=== PATIENT | female | born 1960 | race Caucasian/White ===

== ENCOUNTER 2016-11-13 05:24 | Inpatient (IN) | payer OTHER ==
--- NOTE | 2016-11-10 14:27 | PREOPHP ---
DATE OF ADMISSION: 11/13/2016 The patient to have surgery with Dr. Godwin Layton 11/13/2016. REASON FOR CONSULTATION: Consultation requested by Dr. Godwin Layton for medical evaluation and maude arance of a 56-year-old woman about to undergo surgery on her lumbar spine. Thank you, Dr. Layton, for allowing us to participate in the care of this patient. HISTORY OF PRESENT ILLNESS: Bita Choudhury is a 56-year-old woman with problems with her low back, i s currently being admitted for corrective surgery of the above, in terms of her past. SURGICAL HISTORY: She has had 1 , tonsil and adenoid surgery, tubal ligation, breast augme ntation and tummy tuck in the past, as well as an open ovarian cystectomy. Other than that, she has had no other surgical procedures. Has not had any medical admissions and has really not broken any significant big bones. MEDICATIONS: The patient is currently taking the following medications: 1. Meloxicam 15 mg a day, which she has stopped taking for now. 2. Atorvastatin 40 mg a day. 3. Omeprazole 20 mg a day. 4. Atenolol 50 mg b.i.d. 5. Lisinopril 40 mg a day. 6. Amlodipine 5 mg a day. 7. Lasix 20 mg a day. 8. Ibuprofen 800 mg daily, which she stopped. 9. Benzonatate 100 mg 2 a day. 7. [place] 5/325 as needed. 8. Vitamin E. 9. Vitamin C. 10. Vitamin D daily. ALLERGIES: SHE IS ALLERGIC OR SENSITIVE TO: 1. CODEINE. 2. TRAMADOL. GENERAL HEALTH: Has been good. SOCIAL HISTORY: The patient is , has 1 daughter and 3 grandchildren, all in good health. Bj aleman smokes approximately 1+ packs of cigarettes a day and has been doing so for over 40 years. No alc ohol. Does drink coffee. Has no difficulty sleeping at night. FAMILY HISTORY: Father at age 72 of lung disease. He was a smoker. Mother, 77, has dementia. Four siblings are in good health, albeit one had heart issues. There is a family history, however , of diabetes, heart, cancer, hypertension, stroke, possibly thyroid. REVIEW OF SYSTEMS HEENT: Periodic headaches. CARDIORESPIRATORY: Occasional shortness of breath on exertion. GASTROINTESTINAL: Has hyperacidity symptoms, but no melena or hematemesis. GENITOURINARY: No urgency, frequency. 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 MUSCULOSKELETAL: Positive for back problems. NEUROPSYCHIATRIC: Unremarkable. GENERAL HEALTH: As above. PHYSICAL EXAMINATION: VITAL SIGNS: The patient's blood pressure was 140/72, pulse was 92 and regular, respirations were 1 7, temperature 98.3, height 5 foot 3 inches, weight 183 pounds. GENERAL: The patient was noted to be a well-developed, well-nourished female, alert and cooperative , in no apparent acute distress, oriented to time, place, and person. HEAD, EARS, EYES, NOSE AND THROAT: Head was atraumatic. Eyes: Pupils were equal, reactive to ligh t and accommodation. Fundi were benign. Tympanic membranes were unremarkable. Nose was negative. Mouth was unremarkable. Fair oral hygiene was present. NECK: Supple without any rigidity. Trachea was midline. Thyroid was within normal limits. Neck v eins were flat. Carotid pulses were equal. No bruit were heard. BACK: Unremarkable. CHEST: Symmetrical. Bilateral breast augmentation implants were noted. No axillary masses were pa lpable. LUNGS: Clear to percussion and auscultation. HEART: PMI is fifth intercostal space at the midclavicular line. Regular sinus rhythm was noted. No significant murmurs, rubs, or gallops being elicited. ABDOMEN: Soft, good bowel sounds were noted. No significant organomegaly, masses, or tenderness. Scar from prior surgery being noted. GENITALIA: Normal female external genitalia. PELVIC/RECTAL: Per tractor sweeper driver. EXTREMITIES: Did not reveal any clubbing, edema or cyanosis. Peripheral pulses were physiologic. SKIN: Moist and warm without any eruptions. No gross lymphadenopathy was noted. NEUROLOGIC: Grossly intact. IMPRESSION 1. Lumbar disk disease as well as the degenerative joint disease. 2. Hypertension. 3. Hyperlipidemia. 4. Menopausal syndrome. 5. Smoker. 6. Stable health. DISCUSSION: Review of laboratory and other data revealed the following: The patient's chemistry pa adina revealed a random glucose of 126, total cholesterol of 201, normal electrolytes, BUN, creatinine , and liver function tests. Iron: Patient's CBC was normal, sed rate elevated at 39, normal UA, PT , and PTT. Patient's EKG was normal. Her chest x-ray was normal as well. Her O2 saturation on room air was 93%. DISCUSSION: Dr. Layton, I see no contraindication in this patient undergoing current proposed anup noris under desired form of anesthesia and I feel she is a suitable candidate at this particular poin t in time. I would be more than happy to follow her along with you during her stay at [facility]. Thank you again, Dr. Layton, for allowing us to participate in the care of this patient. Dictated By: KATHERIN MELÉNDEZ MD SS/NTS Conf#: [id number] DID#: [id number]
[2016-11-12 10:26] VITALS: Ht 160 cm; Wt 84.0 kg
[2016-11-13] VITALS (29 sets, daily range): BP systolic 104–146; BP diastolic 51–72; PULSE 65–94; RESP 16–23
[~2016-11-13] VITALS: Ht 160 cm; Wt 84.0 kg
[~2016-11-13 05:24] MED LIST: CEFAZOLIN 2 GM/50 ML (PMX) 50 ML IVPB ONE
[2016-11-13] MEDS ORDERED: POLYMYXIN/BACITRACIN 1L IRRIG ONE (06:35)
[2016-11-13] MEDS ORDERED: GELATIN SIZE 100 SPONGE ONE (06:35)
[2016-11-13] MEDS ORDERED: BUPIVACAINE 0.25% (MPF) 10 ML 10 ML VIAL ONE (06:35)
[2016-11-13] MEDS ORDERED: THROMBIN 5000 UNIT VIAL ONE (06:35)
[2016-11-13] MEDS ORDERED: MELO-216 PO (06:42)
[2016-11-13] MEDS ORDERED: BENZ150C4 PO (06:42)
[2016-11-13] MEDS ORDERED: LISI40TA9 PO (06:42)
[2016-11-13] MEDS ORDERED: AMLO5TAB4 PO (06:42)
[2016-11-13] MEDS ORDERED: IBUP800T25 PO (06:42)
[2016-11-13] MEDS ORDERED: FURO20TA3 PO (06:42)
[2016-11-13] MEDS ORDERED: ATOR40TA68 PO (06:42)
[2016-11-13] MEDS ORDERED: OMEP20CA16 PO (06:42)
[2016-11-13] MEDS ORDERED: ATEN50TA PO (06:42)
[2016-11-13] MEDS ORDERED: VIT E PO (06:46)
[2016-11-13] MEDS ORDERED: [UNRECOGNIZED DRUG - CODE] PO (06:46)
[2016-11-13] MEDS ORDERED: D3 PO (06:47)
[2016-11-13] MEDS ORDERED: ONDANSETRON 4 MG INJ ONE (06:53)
[2016-11-13] MEDS ORDERED: ROCURONIUM 50 MG INJ ONE (06:53)
[2016-11-13] MEDS ORDERED: PROPOFOL 20 ML ONE (06:53)
[2016-11-13] MEDS ORDERED: METOCLOPRAMIDE 10 MG INJ ONE (06:53)
[2016-11-13] MEDS ORDERED: MIDAZOLAM 1 MG/ML 2 ML INJ ONE (06:53)
[2016-11-13] MEDS ORDERED: HYDROmorphONE 2 MG/ML SYG ONE (07:01)
[2016-11-13] MEDS ORDERED: EPHEDrine SULFATE 50 MG/5 ML SYG ONE ×3 (07:40→09:44)
[2016-11-13] MEDS: LACTATED RINGER'S 1,000 ML IV* SCH ×2 (08:00→10:19)
[2016-11-13] MEDS ORDERED: MEPERIDINE 25 MG INJ IV PRN (09:00)
[2016-11-13] MEDS ORDERED: DIPHENHYDRAMINE 50 MG INJ IV PRN (09:00)
[2016-11-13] MEDS ORDERED: ALBUTEROL 0.5% (NEB) 2.5 MG/0.5 ML AMP INH ONE (09:00)
[2016-11-13] MEDS ORDERED: ONDANSETRON 4 MG INJ IV PRN ×2 (09:00→10:30)
[2016-11-13] MEDS ORDERED: hydrALAzine 20 MG INJ IV PRN (09:00)
[2016-11-13] MEDS ORDERED: IPRATROPIUM (NEB) 0.5 MG/2.5 ML AMP HHN ONE (09:00)
[2016-11-13] MEDS ORDERED: HYDROmorphONE (0.2 MG/ML) 10ML SYG IV PRN ×3 (09:00)
[2016-11-13] MEDS ORDERED: LABETALOL HCL 20MG INJ IV PRN (09:00)
[2016-11-13] MEDS ORDERED: METOCLOPRAMIDE 10 MG INJ IV PRN (09:00)
--- NOTE | 2016-11-13 09:14 | RADRPT ---
PROCEDURE: XR Lumbar Spine one view. CLINICAL INDICATION: Low back pain. Intraoperative. TECHNIQUE: Prone portable cross-table lateral. COMPARISON: Prior study done earlier the same day. FINDINGS: For the purposes of this report, the last apparent true disc level is considered to be L5-S1. Based on this, the posterior surgical instruments are present at the L3 spinous process level, L4 spinous process level, and L5 spinous process level. IMPRESSION: 1. Intraoperative imaging as described above. Call report: A call report of the findings was made to Dr. Layton on 11/13/2016 at 0752 hours. RPTAT: QQ .Tenzin Paige MD, MD Date Time Electronically viewed and signed by .Tenzin Paige MD, MD on 11/13/2016 09:14 .R/
--- NOTE | 2016-11-13 09:14 | RADRPT ---
PROCEDURE: XR Lumbar Spine one view. CLINICAL INDICATION: Low back pain. Intraoperative. TECHNIQUE: Prone portable cross-table lateral. COMPARISON: No prior studies are available for comparison. FINDINGS: For the purposes of this report, the last apparent true disc level is considered to be L5-S1. Based on this, the posterior needle markers are present at L3-4 and L5-S1. IMPRESSION: 1. Intraoperative imaging as described above. RPTAT: QQ .Tenzin Paige MD, MD Date Time Electronically viewed and signed by .Tenzin Paige MD, MD on 11/13/2016 09:13 .R/
--- NOTE | 2016-11-13 10:29 | OPPN ---
Date/Time of Note Date/Time of Note DATE: 11/13/16 TIME: 10:20 Operative/Procedure Note Pre-Operative Diagnosis Lumbar spinal stenosis at L3-L4 and L5. Herniated disc L4-5 on the left (foraminal) Foraminal stenosis L4-5 on the left.. Post-Operative Diagnosis Same Procedure 1. Central decompressive laminectomy at L3 2. Central decompressive laminectomy at L4. 3. Central decompressive laminectomy at L5. 4. Microdiscectomy L4-5 on the left. 5. Baxano transforaminal root decompression of the left L4 root. 6. Cosmetic wound closure.8cm 7. Lateral localizing lumbar radiographs (2). 8. Intraoperative nerve monitoring (3-1/2 hours). Surgeon: OLY CHAVIRA MD Anesthesiologist: MARSHA LEA MD Findings Operative findings revealed lumbar spinal stenosis at L3-L4 and L5. There was a small to moderate left foraminal herniation L4-5. There was moderately severe foraminal stenosis at L4 on the left. Intraoperative nerve monitoring revealed decrease in the left L4 potential of 50% the right L4 potential 30% left L5 potential of 60% the right L5 potential 40% and the left S1 potential 20 % and the right S1 potential 20% these all returned to normal at the completion of the procedure. Blood Usage/Administration None Implants/Grafts: Not applicable Estimated blood loss: 50 - 100 ml's Drains 2 medium Hemovac drains employed. Complications: None Anesthesia type: general OLY CHAVIRA MD Nov 13, 2016 10:29
[2016-11-13] MEDS ORDERED: DIAZEPAM 5 MG/ML SYG IM PRN (10:30)
[2016-11-13] MEDS ORDERED: ZOLPIDEM 5 MG TAB PO PRN (10:30)
[2016-11-13] MEDS ORDERED: HYDROCODONE/APAP (5/325) TAB PO PRN (10:30)
[2016-11-13] MEDS ORDERED: NACL 0.9% 3 ML SYG IV SCH (10:30)
[2016-11-13] MEDS ORDERED: DIAZEPAM 5 MG TAB PO PRN (10:30)
[2016-11-13] MEDS ORDERED: TRIMETHOBENZAMIDE 100 MG/ML VIAL IM PRN (10:30)
[2016-11-13] MEDS ORDERED: PROCHLORPERAZINE 10 MG TAB PO PRN (10:30)
[2016-11-13] MEDS ORDERED: CEPASTAT LOZENGE MT PRN (10:30)
[2016-11-13] MEDS ORDERED: ACETAMINOPHEN 325 MG TAB PO PRN (10:30)
[2016-11-13] MEDS ORDERED: HYDROmorphONE 0.2 MG/ML PCA IV SCH (10:30)
[2016-11-13] MEDS ORDERED: DIPHENHYDRAMINE 50 MG CAP PO PRN (10:30)
[2016-11-13] MEDS ORDERED: NALOXONE (0.4 MG/ML) INJ IV PRN (10:30)
[2016-11-13] MEDS ORDERED: BETHANECHOL 25 MG TAB PO PRN (10:30)
[2016-11-13] MEDS ORDERED: AL HYDROX/MG HYDROX/SIMETH 30 ML CUP PO PRN (10:30)
[2016-11-13] MEDS: CEFAZOLIN 1 GM/50 ML (PMX) 50 ML IVPB SCH ×2 (13:00→18:29)
[2016-11-13] MEDS: DEXTROSE 5%-0.45% NACL 1,000 ML IV SCH ×3 (13:30→23:45)
[2016-11-13] MEDS ORDERED: NALOXONE (0.4 MG/ML) INJ ONE (13:57)
--- NOTE | 2016-11-13 17:28 | CONS ---
DATE OF ADMISSION: 11/13/2016 DATE OF CONSULTATION: 11/13/2016 HISTORY OF PRESENT ILLNESS: The patient seen in her room postoperatively. Looks fine. Has some na estephania O2 on, but otherwise has no complaints. Pain is tolerable and the patient is surrounded by her family. PHYSICAL EXAMINATION: CURRENT VITAL SIGNS: Revealed the patient to be afebrile, blood pressure was 110/68, pulse 86, resp irations 17, and O2 is 94% on nasal cannula. HEENT: Unremarkable. LUNGS: Clear. HEART: Reveals a regular rhythm. ABDOMEN: Unremarkable. IMPRESSION: 1. Status post lumbar spine surgery. 2. Hypertension. 3. Hyperlipidemia. 4. Menopausal syndrome. 5. Smoker. DISCUSSION: Plan is to continue her preoperative medicines, those that are appropriate, including h er antihypertensives. Will maybe try a patch if this patient has any sort of withdrawal in terms of her smoking habit. Thank you again, Dr. Chavira, for allowing us to participate in care of this patient. Dictated By: KATHERIN MELÉNDEZ MD SS/NTS Conf#: [id number] DID#: [id number] CC: OLY CHAVIRA MD;*EndCC*
[2016-11-13] MEDS: BENZONATATE 100 MG CAP PO SCH (20:55)
[2016-11-13] MEDS: ATORVASTATIN 40 MG TAB PO SCH (20:55)
[2016-11-13] MEDS: RANITIDINE 150 MG TAB PO SCH (20:56)
[2016-11-14] MEDS: CEFAZOLIN 1 GM/50 ML (PMX) 50 ML IVPB SCH ×2 (00:12→05:54)
[2016-11-14 00:15] VITALS: BP 116/57; PULSE 77; RESP 16
[2016-11-14] MEDS ORDERED: VITAMIN A & D 5 GM OINT PACKET TOP ONE (04:12)
[2016-11-14 05:00] VITALS: BP 135/63; PULSE 89; RESP 18
[2016-11-14] MEDS: PANTOPRAZOLE (EC) 40 MG TAB PO SCH (05:54)
[2016-11-14 06:12] LABS: HEMATOCRIT 38.1 % (37.0-47.0)
[2016-11-14] MEDS: DEXTROSE 5%-0.45% NACL 1,000 ML IV SCH ×3 (06:15→22:00)
[2016-11-14 06:28] LABS: POTASSIUM 4.2 mmol/L (3.5-5.1)
[2016-11-14 06:31] LABS: CREATININE 0.46 mg/dl (0.44-1.00)
[2016-11-14 06:32] LABS: CALCIUM 8.8 mg/dl (8.4-10.2)
--- NOTE | 2016-11-14 07:21 | PN ---
Date/Time of Note Date/Time of Note DATE: 11/14/16 TIME: 07:17 Assessment/Plan Lines/Catheters IV Catheter Type (from Nrsg): Peripheral IV Grant in Place (from Nrsg): Yes Subjective 24 Hr Interval Summary Patient is post-op day #1 from lumbar decompression. She reports improvement of her preop leg symptoms. She has not been up ambulating it. She reports good control of back pain. Lower extremity strength is within normal. Hemovac drain was 10 cc overnight. Drain was removed, incision is healing well Additional Comments Patient will get today with physical therapy. We will remove Grant and IV later today. She is doing well later today and clear for discharge by physical therapy and medicine she can go home. Exam/Review of Systems Vital Signs Vitals Vital Signs Date Time Temp Pulse Resp B/P Pulse Ox O2 Delivery O2 Flow Rate FiO2 11/14/16 05:00 98.2 89 18 135/63 97 Nasal Cannula 2.0 Intake and Output 11/13/16 11/13/16 11/14/16 15:00 23:00 07:00 Intake Total 2650 ml 740 ml 480 ml Output Total 200 ml 470 ml 1210 ml Balance 2450 ml 270 ml -730 ml Results Result Diagram: 11/14/16 0502 11/14/16 0502 LUIS AGRAWAL Nov 14, 2016 07:20
[2016-11-14] MEDS ORDERED: BETHANECHOL 25 MG TAB PO PRN (08:00)
[2016-11-14] MEDS: HYDROCODONE/APAP (5/325) TAB PO PRN ×3 (08:21→19:55)
[2016-11-14 08:24] VITALS: BP 142/65; RESP 20
--- NOTE | 2016-11-14 08:36 | OPR ---
DATE OF OPERATION: 11/13/2016 PREOPERATIVE DIAGNOSIS: Lumbar spinal stenosis at L3, L4, and L5. POSTOPERATIVE DIAGNOSIS: Lumbar spinal stenosis at L3, L4, and L5. PROCEDURES PERFORMED: 1. Central decompressive laminectomy at L3. 2. Central decompressive laminectomy at L4. 3. Central decompressive laminectomy at L5. 4. Microdiskectomy, L4-L5 on the left. 5. Baxano transforaminal root decompression of the left L4 root. 6. Cosmetic wound closure (8 cm). 7. Lateral localized lumbar radiographs (2). 8. Intraoperative monitoring (3-1/2 hours). SURGEON: Godwin Layton MD MACHINE HEEL SPRAYER: GLENN Singletary ANESTHESIA: General endotracheal. ANESTHESIOLOGIST: Zara Hall MD ESTIMATED BLOOD LOSS: 100 mL - none replaced. DRAINS: Two medium Hemovac drains employed. COMPLICATIONS: None. PERTINENT HISTORY AND PHYSICAL: This is a 56-year-old female who sustained injury to her back in [employer] course of employment on 01/13/2014. She has had extensive care since that time, has remained symp tomatic with persistent low back and bilateral leg pain, left greater than right, which has been unr elieved by conservative management. She has undergone a number of diagnostic studies including an M RI of the lumbar spine which demonstrated lumbar spinal stenosis along with a herniated disk at L4-L 5 on the left and foraminal stenosis. Treatment options were discussed with the patient, she electe d to proceed with surgery. OPERATIVE FINDINGS AT SURGERY: Spinal stenosis at L3, L4, and L5 along with a herniation of the L4- L5 disk on the left and foraminal stenosis at L4-L5 on the left were confirmed. The baseline intrao perative nerve monitoring revealed a decrease in the left L4 potential of 50%, the right L4 potentia l of 30%, the left L5 potential of 60%, the right L5 potential of 40%, the S1 potentials bilaterally of 20%. These all returned to normal at the completion of the procedure. OPERATIVE PROCEDURE: With the patient in supine position after satisfactory induction of general en dotracheal anesthesia by Dr. Hall, the patient was turned to the prone kneeling position onto the [place] frame. All pressure points were carefully padded. The back was prepped and draped in the usual sterile fashion. Athrombic pumps were applied to the legs below the knees to prevent veno us stasis during and after the procedure. Two spinal needles were placed next to what was felt to b e the L3 and L5 spinous processes, lateral roentgenogram was taken which confirmed anatomic localiza tion. An 8 cm incision was then carried out midline from L3 to sacrum through skin and subcutaneous tissue to deep fascia after skin was infiltrated with 0.25% Marcaine without epinephrine for postop erative analgesia. Superficial retractors were placed and hemostasis secured with electrocautery. Throughout the procedure, copious amounts of antibacterial irrigating solution were used to periodic ally irrigate the wound. The fascia was incised in midline with a hot knife and a bilateral subperi osteal dissection carried out from L3 to the sacrum. Deep retractors were placed and deep hemostasi s secured with electrocautery. A second intraoperative radiograph was taken with Natalia clamps plac ed in what was felt to be the spinous process of L3, L4, and L5, and this was confirmed with a secon d x-ray. A central decompressive laminectomy at L3, L4, and L5 was then carried out using a Manny right-angle bone rongeur, Leksell rongeur, Kerrison punches, and curettes. Ligamentum flavum was e xcised with sharp dissection. The operating microscope was then moved into place. A medial facetec nikolas and foraminotomy was accomplished at L3-L4, L4-L5, and L5-S1 bilaterally using a small hand ost eotome, mallet, Kerrison punches, and curettes. The L5 root on the left was then mobilized medially and protected with D'Errico nerve retractor using microdissection technique. This revealed a herni ation of the L4-L5 disk on the left. A 15-blade knife was used to cut a rectangular window in the a nnulus and posterior longitudinal ligament and multiple degenerative disk fragments were harvested w [facility] pituitary rongeurs and sent to laboratory for pathologic study. Additional fragments were harve sted using Jesus curettes and Reva curettes. A thorough search of the floor of the canal was ma de with an arthroscopic probe and no additional fragments were encountered. The epidural hemostasis was secured with bipolar electrocautery on a low setting. The anesthesiologist was asked to perfor m a Valsalva maneuver at 40 mmHg and no spinal fluid leak was noted. At this point, there still libby eared to be some distal foraminal stenosis involving the left L4 nerve root and the Baxano instrumen tation was brought onto the field. The Ipsi probe was placed into the foramen, and the guidewire pa ssed in the usual fashion. The neuro probe was then used to isolate the exiting L4 nerve root. Wit h this having been assured, a 7.5 mm shaver was inserted into the foramen and multiple reciprocation s carried out to enlarge the posterior aspect of the foramen. The instrumentation was withdrawn, 20 mL of irrigating solution used to flush the foramen, and hemostasis secured with bipolar electrocau sara on a low setting. A final Valsalva maneuver at 41 mmHg was carried out. No spinal fluid leaks were noted. The wound was then closed in layers over 2 medium Hemovac drains, one below the fascia and one above the fascia, using #1 Vicryl [id number] approximating sutures in deep paralumbar musculature and deep fascia of the back, 2-0 Vicryl subcutaneous approximating sutures in subcutaneo us tissue, and a 4-0 Vicryl subcuticular cosmetic closing suture on the skin. Dermabond and sterile compressive dressings were applied. Patient having tolerated procedure well, was then turned to th e supine position onto her bed and extubated by Dr. Hall. She was transported to the recovery room in satisfactory condition. At the conclusion of the procedure, sponge, instrument, and needle counts were all correct. NEED FOR CONCRETE PAVING MACHINE OPERATOR: During this spinal surgical procedure, my statistical assistant was used to retrac t and protect the spinal nerves and dural sac. My statistical assistant also employed the suction catheters to e vacuate blood from the surgical field to improve visualization of the neural structures. The assista nt was medically necessary to facilitate the completion of the surgery in a safe and expeditious man ner. State of [place] regulations, as well as hospital bylaws, preclude the use of non-licensed [facility] care personnel such as operating room technicians, to perform these functions. Throughout the procedure, neural monitoring was carried out by [employer] including EMG, SSEP, and MEP monitoring of the L2, L3, L4, L5, and S1 nerve roots bilaterally along with spinal cord potentials. These were interpreted by the neurologist employed by [employer] . Dictated By: GODWIN GONZALEZ/AILSSON Conf#: [id number] DID#: [id number] CC: Vikash;*Kody*
[2016-11-14] MEDS ORDERED: ASCORBIC ACID 500 MG TAB.CHEW PO SCH (09:00)
[2016-11-14] MEDS: CHOLECALCIFEROL 1,000 UNIT TAB PO SCH (09:07)
[2016-11-14] MEDS: RANITIDINE 150 MG TAB PO SCH ×2 (09:07→21:37)
[2016-11-14] MEDS: ASCORBIC ACID 500 MG TAB PO SCH ×2 (09:07→21:37)
[2016-11-14] MEDS: DOCUSATE SODIUM 100 MG CAP PO SCH ×2 (09:07→21:37)
[2016-11-14] MEDS: FERROUS SULFATE (EC) 325 MG TAB PO SCH ×3 (09:07→21:37)
[2016-11-14] MEDS: ATENOLOL 50 MG TAB PO SCH (09:08)
[2016-11-14] MEDS: BENZONATATE 100 MG CAP PO SCH ×2 (09:08→21:37)
[2016-11-14] MEDS: LISINOPRIL 10 MG TAB PO SCH (09:08)
--- NOTE | 2016-11-14 10:44 | CONS ---
DATE OF ADMISSION: 11/13/2016 DATE OF CONSULTATION: POSTOPERATIVE CONSULTATION FOLLOWUP HISTORY OF PRESENT ILLNESS: The patient is comfortable, still has oxygen on at this point in time. She did have a relatively comfortable night. PHYSICAL EXAMINATION: VITAL SIGNS: The patient's blood pressure was 135/63, pulse was 89 and regular, respirations were 1 8, temperature 98.2, O2 sat 97% on 2 liters. HEENT: Unremarkable. LUNGS: Clear. HEART: Reveals a regular rhythm. IMPRESSION: 1. Status post lumbar spine surgery. 2. History of hypertension. 3. Hyperlipidemia. DISCUSSION: Review of laboratory and other data reveals the following: The patient's hemoglobin an d hematocrit are 13 and 38. Chem-7 is within normal limits. Plan is to ambulate the patient today and probably can discontinue her oxygen at this particular point in time. CONDITION POSTOPERATIVE: Stable. Thank you again, Dr. Layton, for allowing us to participate in the care of this patient. Dictated By: KATHERIN GONZALES/ALISSON Conf#: [id number] DID#: [id number]
[2016-11-14 12:12] VITALS: BP 115/56; PULSE 81; RESP 16
[2016-11-14 13:41] LABS: ADD UMIC YES; URINE BILIRUBIN (Dip) NEGATIVE (NEGATIVE); URINE BLOOD (Dip) 2+ (NEGATIVE); URINE COLOR YELLOW (YELLOW); URINE GLUCOSE (Dip) NEGATIVE (NEGATIVE); URINE KETONES (Dip) NEGATIVE (NEGATIVE); URINE LEUKOCYTE ESTERASE (Dip) NEGATIVE (NEGATIVE); URINE NITRITE (Dip) NEGATIVE (NEGATIVE); URINE TOTAL PROTEIN (Dip) TRACE (NEGATIVE); URINE UROBILINOGEN (Dip) 0.2 E.U./dL (0.1-1.0)
[2016-11-14 17:50] VITALS: BP 123/59; PULSE 90; RESP 16
[2016-11-14 19:42] VITALS: BP 131/60; RESP 21
[2016-11-14] MEDS: ATORVASTATIN 40 MG TAB PO SCH (21:37)
[2016-11-15] MEDS: HYDROCODONE/APAP (5/325) TAB PO PRN ×3 (02:13→10:34)
[2016-11-15] MEDS: PANTOPRAZOLE (EC) 40 MG TAB PO SCH (06:29)
[2016-11-15 06:42] LABS: BASOPHILS % 0.3 % (0.0-2.0); EOSINOPHILS % 0.3 % (0.0-7.0); HEMATOCRIT 35.8 % (37.0-47.0); HEMOGLOBIN 12.4 g/dl (12.0-16.0); LYMPHOCYTES # 1.4 10^3/ul (0.8-2.9); LYMPHOCYTES % 13.5 % (15.0-51.0); MEAN CORPUSCULAR HEMOGLOBIN 33.1 pg (29.0-33.0); MEAN CORPUSCULAR HGB CONC 34.6 g/dl (32.0-37.0); MEAN CORPUSCULAR VOLUME 95.7 fl (82.0-101.0); MEAN PLATELET VOLUME 8.2 fl (7.4-10.4); MONOCYTES % 9.8 % (0.0-11.0); NEUTROPHIL # 7.9 10^3/ul (1.6-7.5); NEUTROPHILS % 76.1 % (39.0-77.0); PLATELET COUNT 249 10^3/UL (140-440); RED BLOOD COUNT 3.74 10^6/ul (4.20-5.40); RED CELL DISTRIBUTION WIDTH 12.7 % (11.5-14.5); UNCORRECTED WBC 10.3 10^3/ul (4.8-10.8); WHITE BLOOD COUNT 10.3 10^3/ul (4.8-10.8)
[2016-11-15 07:05] LABS: POTASSIUM 3.7 mmol/L (3.5-5.1)
[2016-11-15 07:07] LABS: CREATININE 0.54 mg/dl (0.44-1.00)
[2016-11-15 07:08] LABS: CALCIUM 9.1 mg/dl (8.4-10.2)
[2016-11-15 07:12] LABS: CONDITION 1
--- NOTE | 2016-11-15 07:15 | PN ---
Date/Time of Note Date/Time of Note DATE: 11/15/16 TIME: 07:14 Assessment/Plan Lines/Catheters IV Catheter Type (from Nrsg): Saline Lock Grant in Place (from Nrsg): No Subjective 24 Hr Interval Summary Patient is postop day #2 following a decompressive laminectomy with microdiscectomy. She is afebrile and comfortable. Her preoperative pain is gone. Her postoperative laboratory studies were unremarkable. Her examination reveals intact distal neurovascular structures. She is doing well with physical therapy and I anticipate she will be discharged from the hospital later today after she is cleared by physical therapy. She has been given strict discharge precautions and instructions to remain sedentary except for walking a mile a day in divided increments. She was given back instructions sheets for her information. Exam/Review of Systems Vital Signs Vitals Vital Signs Date Time Temp Pulse Resp B/P Pulse Ox O2 Delivery O2 Flow Rate FiO2 11/14/16 19:56 Nasal Cannula 1.0 11/14/16 19:42 98.2 88 21 131/60 100 Intake and Output 11/14/16 11/14/16 11/15/16 15:00 23:00 07:00 Intake Total 1400 ml 720 ml Output Total 1800 ml Balance -400 ml 720 ml Results Result Diagram: 11/15/16 0433 11/15/16 0435 OLY CHAVIRA MD Nov 15, 2016 07:15
[2016-11-15 07:48] VITALS: BP 131/63; RESP 16
[2016-11-15] MEDS: RANITIDINE 150 MG TAB PO SCH (08:22)
[2016-11-15] MEDS: ASCORBIC ACID 500 MG TAB PO SCH (08:22)
[2016-11-15] MEDS: CHOLECALCIFEROL 1,000 UNIT TAB PO SCH (08:22)
[2016-11-15] MEDS: DOCUSATE SODIUM 100 MG CAP PO SCH (08:22)
[2016-11-15] MEDS: FERROUS SULFATE (EC) 325 MG TAB PO SCH (08:22)
[2016-11-15] MEDS: BENZONATATE 100 MG CAP PO SCH (08:22)
[2016-11-15] MEDS: LISINOPRIL 10 MG TAB PO SCH (08:24)
[2016-11-15] MEDS: ATENOLOL 50 MG TAB PO SCH (08:24)
[2016-11-15] MEDS ORDERED: FUROSEMIDE 20 MG TAB PO SCH (09:00)
--- NOTE | 2016-11-15 09:21 | CONS ---
DATE OF ADMISSION: 11/13/2016 DATE OF CONSULTATION: 11/15/2016 POSTOPERATIVE CONSULTATION FOLLOWUP TIME: Approximately 7:30 in the morning. HISTORY OF PRESENT ILLNESS: The patient doing quite well. Looking forward to going home today. On ly complaint is some minor back pain AT the surgical site, otherwise unremarkable. PHYSICAL EXAMINATION: VITAL SIGNS: Blood pressure 131/63, pulse 79, respirations 16, temperature 98.1, blood pressure 131 /63, O2 sat 90% on room air. HEENT: Unremarkable. LUNGS: Clear. HEART: Unremarkable. IMPRESSION: 1. Status post lumbar spine surgery. 2. Hypertension. 3. Hyperlipidemia. 4. Stable health. DISCUSSION: The patient will be going home today. Rx per Dr. Layton. The patient advised to con tinue all her preop medications at this point in time. Thank you again, Dr. Layton, for allowing us to participate in the care of this patient. Dictated By: KATHERIN GONZALES/ALISSON Conf#: [id number] DID#: [id number]
== END 2016-11-15 11:10 | disposition home or self-care (01) | DRG 520 ==
LOC: REC 05:24 → MS1 12:15
PROVIDERS: ADMIT Orthopaedic Surgery; ATTEND Orthopaedic Surgery
PROC: 0SB20ZZ Excision of Lumbar Vertebral Disc, Open Approach (ICD-10-PCS; 2016-11-13)
PROC: 01NB0ZZ Release Lumbar Nerve, Open Approach (ICD-10-PCS; principal; 2016-11-13 07:00)
DX: M48.06 Spinal stenosis, lumbar region (principal); I10 Essential (primary) hypertension; M51.26 Other intervertebral disc displacement, lumbar region; M51.36 Other intervertebral disc degeneration, lumbar region; E78.5 Hyperlipidemia, unspecified; F17.210 Nicotine dependence, cigarettes, uncomplicated
CPT/HCPCS: 72020; 80048; 81001; 81003; 85014; 85018; 85025; 86850; 86900; 86901; 86920; 87086; 94664; 97116; 97161; 97530; J0690; J1170; J2250; J2310; J2405; J2765; J7042; J7120